=== PATIENT | male | born 1995 ===

== ENCOUNTER 2017-12-06 20:35 | Emergency (ER) | payer SELFPAY ==
[2017-12-06] MEDS ORDERED: Sodium Chloride 0.9% 1,000 ML IV STA (21:44)
--- NOTE | 2017-12-06 21:48 | ED PDOC ---
HPI: Abdomen Time Seen by Provider: 12/06/17 21:25 Chief Complaint (Nursing): Abdominal Pain Chief Complaint (Provider): abdominal pain History Per: Patient History/Exam Limitations: no limitations Onset/Duration Of Symptoms: Days (1 week), Waxing/Waning Current Symptoms Are (Timing): Gone Now Location Of Pain/Discomfort: RUQ Associated Symptoms: Nausea, Vomiting Additional Complaint(s): 22 y/o male presents for evaluation of intermittent upper abdominal pain x 1 week. Patient states pain started last week as "cramp" in right upper back; today noted pain in right upper abdomen, worse after eating, with one episode of vomiting. Denies fever, cough, congestion, chest pain, shortness of breath, changes in bowel movements, urinary symptoms. No medication taken for relief thus far. Past Medical History Reviewed: Historical Data, Nursing Documentation, Vital Signs Vital Signs: Last Vital Signs Temp 98.6 F 12/06/17 20:59 Pulse 68 12/06/17 20:59 Resp 20 12/06/17 20:59 BP 127/70 12/06/17 20:59 Pulse Ox 99 12/06/17 23:51 - Medical History PMH: No Chronic Diseases - Surgical History Surgical History: No Surg Hx - Family History Family History: States: No Known Family Hx - Living Arrangements Living Arrangements: With Family - Home Medications Home Medications: Ambulatory Orders Medication Instructions Recorded Famotidine [Pepcid] 20 mg PO BID #20 tab 12/07/17 Ondansetron [Zofran] 4 mg PO Q8H PRN #10 tab 12/07/17 - Allergies Allergies/Adverse Reactions: Allergies Allergy/AdvReac Type Severity Reaction Status Date / Time No Known Allergies Allergy Verified 12/06/17 20:58 Review of Systems ROS Statement: Except As Marked, All Systems Reviewed And Found Negative Gastrointestinal: Positive for: Abdominal Pain Physical Exam - Reviewed Nursing Documentation Reviewed: Yes Vital Signs Reviewed: Yes - Physical Exam Appears: Positive for: Well, Non-toxic, No Acute Distress Head Exam: Positive for: ATRAUMATIC, NORMAL INSPECTION, NORMOCEPHALIC Skin: Positive for: Normal Color Eye Exam: Positive for: Normal appearance ENT: Positive for: Normal ENT Inspection Cardiovascular/Chest: Positive for: Regular Rate, Rhythm Respiratory: Positive for: Normal Breath Sounds Gastrointestinal/Abdominal: Positive for: Bowel Sounds, Soft, Tenderness (RUQ) Back: Positive for: Normal Inspection. Negative for: L CVA Tenderness, R CVA Tenderness Extremity: Positive for: Normal ROM Neurologic/Psych: Positive for: Alert, Oriented (x3) - Laboratory Results Result Diagrams: 12/06/17 23:06 12/06/17 23:06 - ECG O2 Sat by Pulse Oximetry: 99 - Progress ED Course And Treament: labs, RUQ u/s, IV fluids EXAM: US Abdomen Limited, Right Upper Quadrant EXAM DATE/TIME: 12/06/2017 9:44 PM CLINICAL HISTORY: 22 years old, male; Pain and signs and symptoms; Vomiting; Abdominal pain; Epigastric; Additional info: Ruq pain, vomiting TECHNIQUE: Real-time ultrasound of the right upper quadrant with image documentation. COMPARISON: No relevant prior studies available. FINDINGS: Liver: Diffusely increased echogenicity. No mass. No intrahepatic bile duct dilation. Gallbladder: Contracted. No gallstones. Negative sonographic Rothman's sign Common bile duct: Unremarkable as visualized. No stones. No dilation. Measures 0.3 cm. Pancreas: Unremarkable as visualized. Right kidney: Unremarkable. No stones. No solid mass. No hydronephrosis. IMPRESSION: Sonographic evidence of diffuse hepatic steatosis. Otherwise no acute findings. Case discussed with ED attending Dr. Alcazar; will send hepatitis panel and encourage supportive care Patient tolerating PO on re-eval Patient educated on findings, discharged with rx Zofran, Pepcid Advised diet modification Follow up [facility] Return precautions given Disposition - Clinical Impression Clinical Impression: Abdominal pain, Elevated liver function tests, Hepatic steatosis - Patient ED Disposition Is Patient to be Admitted: No Counseled Patient/Family Regarding: Studies Performed, Diagnosis, Need For Followup, Rx Given - Disposition Referrals: [facility] [Outside] Disposition: Routine/Home Disposition Time: 00:25 Condition: IMPROVED Prescriptions: Famotidine [Pepcid] 20 mg PO BID #20 tab Ondansetron [Zofran] 4 mg PO Q8H PRN #10 tab PRN Reason: Nausea/Vomiting Instructions: Nonalcoholic Fatty Liver Disease (DC), Acute Abdomen (Belly Pain)
[2017-12-06 23:11] LABS: BASO # 0.1 K/uL (0.0-0.2); BASO % 0.6 % (0.0-2.0); EOS # 0.1 K/uL (0.0-0.7); EOS % 1.5 % (0.0-4.0); HEMOGLOBIN 13.3 g/dL (12.0-18.0); LYMPH # 2.7 K/uL (1.0-4.3); LYMPH % 31.4 % (20.0-40.0); MEAN CELL VOLUME 97.5 fl (80.0-94.0); MEAN CORPUSCULAR HEMOGLOBIN 32.8 pg (27.0-31.0); MEAN CORPUSCULAR HGB CONC 33.6 g/dL (33.0-37.0); MEAN PLATELET VOLUME 9.4 fl (7.2-11.7); MONO # 0.6 K/uL (0.0-0.8); MONO % 7.3 % (0.0-10.0); NEUT # 5.1 K/uL (1.8-7.0); NEUT % 59.2 % (50.0-75.0); NRBC % 0.1 % (0.0-0.0); RBC 4.05 Mil/uL (4.40-5.90); RED CELL DISTRIBUTION WIDTH 13.5 % (11.5-14.5); WHITE BLOOD COUNT 8.7 K/uL (4.8-10.8)
[2017-12-06 23:20] LABS: SQUAMOUS EPITHIAL 1 /hpf (0-5); URINE BACTERIA RARE (<OCC); URINE BILIRUBIN NEGATIVE (NEGATIVE); URINE BLOOD NEGATIVE (NEGATIVE); URINE CLARITY SLIGHTY-CLOUDY (Clear); URINE COLOR YELLOW (YELLOW); URINE GLUCOSE (UA) NEG (Normal); URINE LEUKOCYTE ESTERASE NEG Leu/uL (Negative); URINE PROTEIN NEGATIVE (NEGATIVE)
[2017-12-06 23:30] LABS: ALB/GLOB RATIO 1.1 (1.0-2.1); ALBUMIN 4.1 g/dL (3.5-5.0); ALT/SGPT 611 U/L (21-72); AST/SGOT 229 U/L (17-59); BLOOD UREA NITROGEN 19 mg/dl (9-20); CALCIUM 9.2 mg/dL (8.4-10.2); GFR NON-AFRICAN AMERICAN > 60; LIPASE 43 U/L (23-300)
[2017-12-07 01:47] VITALS: BP 112/71; PULSE 61; RESP 18; TEMP 98.4; O2SAT 98
--- NOTE | 2017-12-07 09:37 | US ---
Date of service: 12/06/2017 HISTORY: ruq pain, vomiting COMPARISON: None. TECHNIQUE: Grayscale imaging was performed. FINDINGS: LIVER: Measures 13.5 cm in length. There is diffuse increased echogenicity of the liver parenchyma. No mass. No intrahepatic bile duct dilatation. GALLBLADDER: The gallbladder is contracted. No gallstones. COMMON BILE DUCT: Measures 3.0 mm. No stones. No dilatation. PANCREAS: Unremarkable as visualized. No mass. No ductal dilatation. RIGHT KIDNEY: Measures 10.8 cm in length. Normal echogenicity. No calculus, mass, or hydronephrosis. AORTA: No aneurysmal dilatation. IVC: Unremarkable. OTHER FINDINGS: None . IMPRESSION: Diffuse increased echogenicity in the liver may reflect hepatic steatosis however parenchymal infectious/ inflammatory etiologies cannot be entirely excluded. Clinical and laboratory correlation is advised. The gallbladder is contracted A preliminary report was provided by [employer].
[2017-12-07 12:46] LABS: HEPATITIS B SURFACE AG Negative (NEGATIVE)
[2017-12-07 12:52] LABS: HEPATITIS A IGM NEGATIVE (NEGATIVE); HEPATITIS B CORE AB NEGATIVE (NEGATIVE)
[2017-12-07 13:04] LABS: HEPATITIS C ANTIBODY NEGATIVE (NEGATIVE)
== END 2017-12-07 01:57 | disposition home or self-care (01) ==
LOC: H.ER 20:35
DX: R10.13 Epigastric pain (principal); R79.89 Other specified abnormal findings of blood chemistry; K76.0 Fatty (change of) liver, not elsewhere classified
CPT/HCPCS: 76705; 80053; 80074; 81003; 83690; 85025; 96360; 99284; J7030